=== PATIENT | female | born 2000 | race Caucasian/White ===

== ENCOUNTER 2021-01-04 09:02 | Emergency (ER) | payer OTHER, SELFPAY ==
[2021-01-04 09:20] VITALS: BP 115/97; PULSE 90; RESP 16; TEMP 36.7; O2SAT 97
--- NOTE | 2021-01-04 09:27 | PC.NURSE ---
no culture sent per provider
--- NOTE | 2021-01-04 09:38 | ED.URI ---
HPI - URI/Sore Throat General Chief Complaint: Upper Respiratory Infection Stated Complaint: asthma issues Time Seen by Provider: 01/04/21 09:30 Source: patient Mode of arrival: ambulatory Limitations: no limitations History of Present Illness HPI Narrative: Sonia Smith is a 20 yo female with a PMH of asthma who is here with asthma exacerbation. She is 10 weeks . Patient has a history of having chronic asthma and difficulty with shortness of breath because of her asthma but has out of both inhalers and has no primary care physician. She states she gets shortness of breath with walking very far and she is chronically wheezing. Discussed management of her asthma in the past and she is relied on rescue inhalers; she has no allergies Related Data Home Medications Medication Instructions Recorded Confirmed albuterol sulfate [Ventolin HFA] 2 puff INHALATION QID PRN 01/04/21 01/04/21 [id number] fum-folic [id number] 1 pkg PO DAILY 01/04/21 01/04/21 [Daily ] Allergies Allergy/AdvReac Type Severity Reaction Status Date / Time No Known Allergies Allergy Verified 01/04/21 09:27 Review of Systems Review of Systems: Narrative: CONSTITUTIONAL: Denies fever, chills, sweats. EYES: Denies visual changes, redness, discharge. ENT: Denies rhinorrhea, congestion, sore throat, otalgia. CARDIOVASCULAR: Denies chest pain, palpitations, edema. RESPIRATORY: Denies dyspnea, inspiratory and expiratory wheezing, mild cough GASTROINTESTINAL: Denies abdominal pain, nausea, vomiting, diarrhea. GENITOURINARY: Denies dysuria, hematuria, abnormal discharge SKIN: Denies rash or itching. NEUROLOGIC: Denies numbness, or focal weakness. PSYCHIATRIC: Denies anxiety or depression. [facility] Past Medical History Medical History Asthma Comments At time of signature, I agree with nursing past medical, surgical, social and family history. There is no relevant family history pertinent to the presenting complaint. Blood pressure is elevated due to asthma exacerbation, elevated due to neb treatment- given follow up pcp Exam Narrative: Exam Narrative: GENERAL: This is a well-nourished, well-developed patient, in moderate distress. HEAD: normocephalic, atraumatic. EYES: Sclera clear/white. Vision is grossly intact. EARS: External ears normal, auditory canals clear and without drainage, TMs normal without perforation. Hearing grossly intact. NOSE: External nose normal without nasal discharge, nares without redness, no rhinorrhea. THROAT: Mucous membranes moist, posterior pharynx mild erythema NECK: Neck supple, non-tender CARDIOVASCULAR: Regular rate and rhythm without murmurs, gallops, or rubs. RESPIRATORY: Diminished to auscultation. Breath sounds equal bilaterally. Bilateral inspiratory and expiratory wheezes, no rales, or rhonchi. GASTROINTESTINAL: Abdomen soft, SKIN: warm, intact with no suspicious lesions or rash, good texture and turgor. NEURO: awake, alert, and oriented to person, place and time. There were no obvious focal neurologic abnormalities. Steady gait EXTREMITIES: Normal range of motion. BACK: Nontender without deformity Course Course Emergency Course: Patient comes to [facility] with chronic asthma with a current asthma exacerbation She is 10 weeks She is given prednisone 60 mg here on site and a albuterol/Atrovent nebulizer treatment Will be discharged with prednisone x4 days; albuterol inhaler, and nebulizer solution and referral for nebulizer machine Vital Signs Vital signs: Vital Signs Temperature 98.1 F 01/04/21 09:20 Pulse Rate 90 01/04/21 09:20 Respiratory Rate 16 01/04/21 09:20 Blood Pressure 115/97 H 01/04/21 09:20 Pulse Oximetry 97 01/04/21 09:20 Temperature 98.1 F 01/04/21 09:20 Pulse Rate 90 01/04/21 09:20 Respiratory Rate 14 01/04/21 10:25 Blood Pressure 141/60 H 01/04/21 10:25 Pulse Oximetry 98 03/0
[2021-01-04] MEDS: predniSONE 20 MG TABLET 60 MG PO (09:54)
[2021-01-04] MEDS: IPRATROPIUM BR 0.02% INH SOLN 0.5 MG/2.5 ML VIAL 1 MG INHALATION (09:55)
[2021-01-04] MEDS: ALBUTEROL SULFATE NEB 2.5 MG/3 ML INH INHALATION (09:55)
[2021-01-04 10:25] VITALS: BP 141/60; RESP 14; O2SAT 98
== END 2021-01-04 10:35 | disposition home or self-care (01) ==
PROVIDERS: Emergency Provider Nurse Practitioner
DX: O99.512 Diseases of the respiratory system complicating pregnancy, second trimester (principal); Z3A.22 22 weeks gestation of pregnancy; J45.901 Unspecified asthma with (acute) exacerbation
CPT/HCPCS: 94640; 99213; G0463; J7512

== ENCOUNTER 2025-03-22 11:03 | Emergency (ER) | payer OTHER, SELFPAY ==
--- OUTSIDE RECORDS SUMMARY | 2025-03-22 11:08 | XMS_ITS | Referral Summary ---
Author Organization [facility] [address] Address [address] [place] [address] Phone Care Team Providers Care Cinder Pitman Name Role Phone No, Physician Primary Care Provider [phone] Sunny Vicente MD Unavailable [phone] Allergies No known active allergies Medications norgestimate-ethin yl estradioL (ORTHO-CYCLEN) 0.25-35 mg-mcg per tabletIndications: Encounter for general counseling and advice on contraceptive management Take 1 tablet by mouth daily 28 tablet 4 3 Active Active Problems Problem Noted Date Diagnosed Date Urinary tract infection in female 06/19/2022 Uterine adnexal pain 06/19/2022 Intramural uterine fibroid 06/19/2022 Obesity (BMI 30-39.9) 12/05/2020 Mild intermittent asthma without complication Assessment & Plan (04/15/2020 8:50 AM CDT): Home albuterol MDI replaced with formulary nebs while inpatient. Resolved Problems Problem Noted Date Diagnosed Date Resolved Date Maternal varicella, non-immune 01/02/2021 09/04/2021 Previous delivery a ffecting 12/05/2020 09/04/2021 Overview (07/15/2021): Desires repeat - scheduled 07/25 at 0730. Short interval between pregn ancies affecting , antepartum 12/05/2020 09/04/2021 Overview (12/05/2020): Delivered by c/s 03/2020. HEMALATHA 07/2021. Non-intractable vomiting with nausea 04/15/2020 12/05/2020 Assessment & Plan (04/15/2020 8:50 AM CDT): Most likely related to gall bladder pathology based on biliary dilation seen on CT and mild elevation of AST, ALT, alk phos, and bilirubin. With no obstructing stones present it could be due to biliary hypokinesis vs a recently passed stone. RUQ US ordered. GI consulted, may need general surgery evaluation for cholecystectomy. Breast feeding status of mother 04/15/2020 12/05/2020 Assessment & Plan (04/15/2020 8:51 AM CDT): Continue home vitamins. Ankle pain 06/04/2016 12/05/2020 Immunizations Immunization Administration Dates Next Due Tdap 03/25/2020 Social History Tobacco Use Types Packs/Day Years Used Date Smoking Tobacco: Every Day Cigarettes 1 7.5 Started: 2013; Last attempted to quit: 05/01/2021 E-cigarettes Smokeless Tobacco: Never Tobacco Cessation:Ready to Q uit: Not Asked; Counseling Given: Not Answered Alcohol Use Standard Drinks/Week Comments No 0 (1 standard drink = 0.6 oz pur e alcohol) AUDIT-C Answer Date Recorded Q1: How often do you have a drink containing alc ohol? Never 07/25/2021 Average Number of Drinks Not on file 021 Frequency of Binge Drinking Not on file 07/03 PHQ-2 Answer Date Recorded PHQ-2 Total Score (If total score is 3 or more points, staff should administer the PHQ-9) 0 04/15/2020 Personal Safety Answer Date Recorded Have you ever been in or are you currently in a harmful physical or emotional relationship or is someone making you feel afraid or unsafe? Denies 06/01/2023 Comments No Sex and Gender Information Value Date Recorded Sex Assigned at Not on file Legal Sex Female 7:02 AM STOCKING INSPECTOR Gender Identity Not on file Sexual Orientation Not on file Occupation Industry Job Start Date Job End Date [employer] Not on file Not on file Not on file Last Filed Vital Signs Vital Sign Reading Time Taken Comments Blood Pressure 102/80 09/06/2023 10:47 AM STOCKING INSPECTOR Pulse 75 06/02/2023 2:15 AM CDT Temperature 36.9 C (98.5 F) 06/01/2023 11:43 PM CDT Respiratory Rate 20 06/01/2023 11:43 PM CDT Oxygen Saturation 97% 06/02/2023 2:15 AM CDT Inhaled Oxygen Concentration - - Weight 68.5 kg (151 lb) 09/06/2023 10:47 AM STOCKING INSPECTOR Height 152.4 cm (5') 07/25/2021 6:09 AM CDT Body Mass Index 29.49 07/25/2021 6:09 AM CDT Plan of Treatment Not on file Procedures Procedure Name Priority Date/Time Associated Diagnosis Comments HEPATITIS C ANTIBODY Routine 12/05/2020 10:13 AM STOCKING INSPECTOR 8 weeks gestation of care, subsequent , first trimester PAP AND HIGH RISK HPV, REFLEX TO GENOTYPING Routine 12/05/2020 9:48 AM STOCKING INSPECTOR from Last 3 Months or Most Recently Relevant to Health Maintenance Results * Hepatitis C antibody (12/05/2020 10:13 AM STOCKING INSPECTOR) Hep C Ab Nonreactive Nonreactive RENNY MARTINEZ Comment: Interpretive Data Nonreactive: Antibodies to HCV not detected. Does NOT exclude the possibility of recent exposure to HCV. Equivocal: Equivocal for HCV antibodies. Supplemental molecular testing will be automatically performed to determine infection status in accordance with current CDC screening recommendations. Reactive: Positive for HCV antibodies. This may represent current or past HCV infection. Supplemental molecular testing will be automatically performed to determine current infection status in accordance with current CDC screening recommendations. Interpretive data was last revised on 2020. Blood specimen (specimen) 12/05/2020 10:13 AM STOCKING INSPECTOR 12/05/2020 5:20 PM STOCKING INSPECTOR Prema De La Torre MD LAB MICROBIOLOGY - NERAL ORDERABLES Final Result RENNY MARTINEZ [address] [employer] [place] [employer] [place] [address] * (ABNORMAL) Pap and High Risk HPV, reflex to Genotyping (12/05/2020 9:48 AM STOCKING INSPECTOR) Pap test 12/05/2020 9:48 AM STOCKING INSPECTOR 12/05/2020 9:48 AM STOCKING INSPECTOR Narrative 12/10/2020 10:57 AM STOCKING INSPECTOR [facility] Department of Pathology [address] [place], [place] [id number] Final Report with Addendum Patient Name: SONIA SMITH Address: [address] [place] [address] Gender: F : 2000 (Age: 20) Service: Laboratory Location: Lab Hospital #: [id number] Patient Type: Ref Lab Taken: 12/05/2020 Received: 12/05/2020 Accessioned:: 12/06/2020 Reported: 12/10/2020 Physician(s): MD Prema Martinez MD Diagnosis: Source of Specimen: SCREENING THIN PREP IMAGED PAP w/ Reflex HPV Specimen Adequacy: - Specimen satisfactory for interpretation; endocervical/transformation zone component absent or insufficient General Category: - Epithelial cell abnormality Interpretation/Results: - Atypical squamous cells of undetermined significance; - High risk HPV test pending -- addendum to follow OLLIE Mclean([facility]) Pedro Mohan M.D. Report Electronically Reviewed and Signed Out By Pedro Mohan M.D. 12/10/2020 10:57:22 Addenda: HPV Test Interpretation NEGATIVE for types 16, 18, 31, 33, 35, 39, 45, 51, 52, 56, 58, 59, 66 and 68. Test performed utilizing Gen-Probe Aptima assay. OLLIE Holt([facility]) Report Electronically Reviewed and Signed Out By KEILY HoltASC) 12/11/2020 10:38:01 Specimen(s) Received: A: SCREENING THIN PREP IMAGED PAP w/ Reflex HPV Clinical History: Last Menstrual Period: 10/09/2020 Menstrual History: The Pap test is a screening test used to aid in the detection of cervical cancer and its precursors. It should not be the sole means by which malignant and premalignant lesions are diagnosed. Both false negative and false positive results may occur. It also has poor sensitivity for the detection of endometrial lesions and should not be used to evaluate suspected endometrial abnormalities. For these reasons it is most important to obtain Pap tests at regular intervals. The performance characteristics of some immunohistochemical stains, fluorescence in-situ hybridization tests and immunophenotyping by flow cytometry cited in this report (if any) were determined by the Surgical Pathology Department at [facility] as part of an ongoing supplier quality specialist program and in compliance with federally mandated regulations drawn from the Clinical Laboratory Improvement Act of 1988 (CLIA '88). Some of these tests rely on the use of analyte specific reagents and are subject to specific labeling requirements by the US Food and Drug Administration. Such diagnostic tests may only be performed in a facility that is certified by the Department of Health and Human Services as a high complexity laboratory under CLIA '88. The FDA has determined that such clearance or approval is not necessary. This test is used for clinical purposes. It should not be regarded as investigational or for research. Nevertheless, federal rules concerning the medical use of analyte specific reagents require that the following disclaimer be attached to the report: This test was developed and its performance characteristics determined by the Surgical Pathology Department [facility]. It has not been cleared or approved by the U. S. Food and Drug Administration. Prema De La Torre MD LAB CYTOLOGY ORDERABL ES Final Result from Last 3 Months or Most Recently Relevant to Health Maintenance Insurance [employer] OPEN ACCESS [employer]PA IDPA [employer] IDPA BLUE ACCESS OOS Advance Directives For more information, please contact: [phone] * Full Code (Latest Code Status on File) Date Activated Date Inactivated Comments 07/25/2021 8:41 AM 07/27/2021 6:31 PM * Full Code Date Activated Date Inactivated Comments 07/25/2021 6:07 AM 07/25/2021 8:41 AM Full CPR in case of cardiopulmonary arrest * Full Code Date Activated Date Inactivated Comments 04/15/2020 5:10 AM 04/15/2020 11:06 PM * Full Code Date Activated Date Inactivated Comments 03/23/2020 10:17 PM 03/25/2020 9:57 PM * Full Code Date Activated Date Inactivated Comments 03/22/2020 5:39 PM 03/23/2020 10:17 PM Full CPR in case of cardiopulmonary arrest Care Teams Cinder Pitman Relationship Specialty Start Date End Date No, Physician PCP - General 04/14/20 Sunny Vicente MD Consulting Physician Gastroenterology 04/15/20
--- OUTSIDE RECORDS SUMMARY | 2025-03-22 11:08 | XMS_ITS | Clinical Summary ---
Author Organization [employer] [facility] Address [address] [place] [address] Care Team Providers Care Administrative Library Assistant Name Role Phone Unavailable Primary Care Provider Unavailabl e Immunizations Immunization Administration Dates Next Due Influenza Seasonal Unspecified Formulation IM Social History Tobacco Use Types Packs/Day Years Used Date Smoking Tobacco: Never Assessed Comments Unknown Sex and Gender Information Value Date Recorded Sex Assigned at Not on file Legal Sex Female 2:34 PM CDT Gender Identity Not on file Sexual Orientation Not on file Plan of Treatment Health Maintenance Due Date Last Done Comments HPV VACCINES (1 - 3-dose series) 2013 DTAP/TDAP/TD VACCINES (1 - Tdap) 2017 HEPATITIS B VACCINES (1 of 3 - 19+ 3-dose series) 09/03 CERVICAL CANCER SCREENING 2019 HPV/Cotest (21-29) 2019 PAP SMEAR 2019 INFLUENZA VACCINE (#1) 2024 07/26/2020
--- OUTSIDE RECORDS SUMMARY | 2025-03-22 11:08 | XMS_ITS | Continuity of Care Document ---
[facility] Address [address] [place] [address] [place] [address] Phone Care Team Providers Care Quality Assurance Qa Lab Technician Name Role Phone [facility] Unavailable Unavail able Allergies, Adverse Reactions, Alerts Substance Reaction Status Criticality No Known Allergies Active No Inform ation Medications Medication Instructions Dosage Effective Dates (start - stop) Status Comments Nexplanon 68 mg subdermal implant take 1 tablet once each day - Active multivitamin capsule take 1 tablet once each day - Active Claritin 10 mg tablet take 1 tablet by o ral route every day 10 MG - Active Procedures Procedure Date Vision Svcs Frames Purchases SV Plastic Sphcyl Reddick +/-4d, .12-2d Ju Polycarb Lens Per Lens Anti-reflective Coating Refraction Eye Exam, New Patient Eye Exam, New Patient Refraction Advance Directives Directive Yes / No Effective Date File Name No Information Encounters Encounter Description Practice Location Reason(s) For Visit Diagnoses Date Provider Providers Copied on Encounter [facility], [address], [place], [place], [id number], [place] tel:[phone] SEC Thony Cody No Information [facility] . [address], [address], [place], [place], [address], [place]. tel:[phone] [facility], [address], [place], [place], [id number], [place] tel:[phone] [address] Slayton N Lindbergh No Information [facility] . [address], [address], [place], [place], [address], [place]. tel:[phone] Referring Provider: Nieves Carpenter, [address], [place], [address]. tel:[phone] sulting Provider: Brooks Chadwick, [address], [place], [address] . tel:[phone] [facility], [address], [place], [place], [id number], [place] tel:[phone] SEC Slayton N Lindbergh Complete Exam (chief complaint) Regular astigmatism of both eyes Mukul OD Nieves. [address], [address], [place], [address], [place]. tel:[phone] Referring Provider: Sergio Jacobo, [address], [place], [address] . tel:[phone] [facility], [address], [place], [place], [address], [place] tel:[phone] SEC Slayton N Lindbergh No Information 8 Mukul OD Nieves. [address] [facility] [address], [address], [place], [address], [place]. tel:[phone] [facility], [address], [place], [place], [address], [place] tel:[phone] [address] [place] Blurry vision (chief complaint) No Information [address]. [address], [place], [place], [address], [place]. tel:[phone] Referring Provider: Sergio Jacobo, [address] [facility] [address], [place], [address] . tel:[phone] Family History Family Member Type Diagnosis Age At Onset No Information Payers Payer name Insurance type Covered constitution party ID Authornegro rogers(s) [employer] [id number] Social History Type Description Quantity Date Captured Comments Alcohol Use Details Unknown Caffeine Use Details Unknown Tobacco Use Status Smoking Status No Information Sex Female Chief Complaint And Reason For Visit No Information Reason For Referral Reason For Referral No Information Plan Of Treatment Date Type Action Status Goal Tobacco cessation counseling completed Patient Education Astigmatism: Care Instr uctions completed History Of Present Illness Encounter Date Complaint History Of Prese nt Illness Complete Exam The 17 year old female presents for evaluation of Complete Exam in the right eye and left eye. Hx of Myopia OU. Pt states she is having trouble seeing street signs at night and her eye are getting tired when reading. Pt also gets a slight STOVER after reading. DVA and NVA gradual decrease OU x 1 yr. Pt using no gtts at this time. Blurry vision The 14 year 4 mo nth old female presents for complete exam. Patient states that v/a is stable OU. Patient denies any pain or discomfort at this time. Patient not taking any drops at this time. Functional Status Date Functional Assessmen t No Information Instructions Date Instruction Additional Infor mation Impression/Plan New glasses Rx given Related to Regular astigmatism of both eyes - Good ocular health . No treatment needed at this time. return in 1 year for complete exam or sooner with any problems. Related to See list of assessments above - Return in 1 year portillo Novoa M.D. for Complete Exam Related to See list of assessments above Assessments Type Assessment Date No Information Patient Care Teams Name Effective Dates (start - stop) Status Members No Information
--- OUTSIDE RECORDS SUMMARY | 2025-03-22 11:08 | XMS_ITS | Clinical Summary ---
Author Organization [facility] [address] Address [address] [place] [address] Phone Care Team Providers Care Sample Washer Name Role Phone No, Physician Primary Care Provider [phone] Sunny Vicente MD Unavailable [phone] Allergies No known active allergies Medications norgestimate-ethin [...] Immunization Administration Dates Next Due Tdap 03/25/2020 Surgical History Surgery Date Site/Laterality Comments SECTION 03/01/2020 - 03/31/2020 REPEAT SECTION 11/01/2020 - 10/31/2021 Medical History Medical History Date Comments Asthma Depression Started medicati on in 7th grade, irregular use. Brief use of fluoxetine 2019. Chlamydia 2015 Family History Medical History Relation Name Comments Heart attack Father Hypertension Maternal Grandfather Hypertension Mother Thyroid cancer Mother Relation Name Status Comments Father Maternal Grandfather Mother Social History Tobacco Use Types Packs/Day Years [...] on file Legal Sex Female 7:02 AM RURAL HEALTH CONSULTANT Gender Identity Not on file Sexual Orientation Not on file Occupation Industry Job Start Date Job End Date [employer] Not on file Not on file Not on file Obstetrics History Para Term AB IAB SAB Ectopic Multiple Livin g Live Births 2 2 2 0 2 2 Date Outcome GA Total Labor Labor/2nd/3rd Weight Sex Type Anes PTL Abeba A1 A5 Name Clin 2019 Term 40w 3d 9h 27m 8h 28m/0h 58m/0h 01m 2.775 kg (6 lb 1.9 oz) M CS-LT ranv Epidur al,Gen eral N Livin g 3 6 TRI SMITH Tim C., MD Complications:Abruptio Place nta, Intolerance Delivery Location:[facility] ([facility] L [facility] PROCEDURE) 2020 Term 39w 3d 0h 02m 0h 02m 3.172 kg (6 lb 15.9 oz) M CS-LT ranv Spinal N Livin g 9 9 TRI SMITH Rachel Elizab eth, MD Complications:None Delivery Location:[facility] ([facility] PROCED[facility]) Comments 1. 2019 - cervidil/pitocin I OL for post-dates. Arrest of descent with NRFHTS, port-wine stained fluid with pushing. 1' C/S for placental abruption. 2. 2020 - scheduled RLTCS. Last Filed Vital Signs Vital Sign Reading Time Taken Comments Blood Pressure 102/80 09/06/2023 10:47 AM RURAL HEALTH CONSULTANT Pulse 75 06/02/2023 2:15 AM CDT Temperature 36.9 C (98.5 F) 06/01/2023 11:43 PM CDT Respiratory Rate 20 06/01/2023 11:43 PM CDT Oxygen Saturation 97% 06/02/2023 2:15 AM CDT Inhaled Oxygen Concentration - - Weight 68.5 kg (151 lb) 09/06/2023 10:47 AM RURAL HEALTH CONSULTANT Height 152.4 cm (5') 07/25/2021 6:09 AM CDT Body Mass Index 29.49 07/25/2021 6:09 AM CDT Plan of Treatment Health Maintenance Due Date Last Done Comments Varicella Vaccines (2 of 2 - 2-dose childhood series) 2002 04/01/2000 Regular Well Visit/Exam 18-64 2016 Pneumococcal vaccine <65 (1 of 2 - PCV) 2017 Depression Screening 04/14/2021 04/14/2020 Cervical Cancer Screening 12/05/2021 12/05/2020 Influenza Vaccine (Season Ended) 2025 07/26/2020, 09/13/2019, 08/12/2012 DTaP/Tdap/Td Vaccine (8 - Td or Tdap) 03/25/2030 03/25/2020, 04/22/2010, 12/11/2002, Additional history exists Hepatitis B Screening Completed 07/24/1999 , 02/03/1999, 1998 HPV Vaccines Completed 02/13/2016, 11/01, 12/21/2012, Additional history exists Hepatitis C Screening Completed 12/05/2020 Procedures Procedure Name Priority Date/Time Associated Diagnosis Comments HEPATITIS C ANTIBODY Routine 12/05/2020 10:13 AM RURAL HEALTH CONSULTANT 8 weeks gestation of care, subsequent , first trimester PAP AND HIGH RISK HPV, REFLEX TO GENOTYPING Routine 12/05/2020 9:48 AM RURAL HEALTH CONSULTANT from Last 3 Months or Most Recently Relevant to Health Maintenance Results * Hepatitis C antibody (12/05/2020 10:13 AM RURAL HEALTH CONSULTANT) Hep C Ab Nonreactive Nonreactive RENNY MARTINEZ [...] 2020. Blood specimen (specimen) 12/05/2020 10:13 AM RURAL HEALTH CONSULTANT 12/05/2020 5:20 PM RURAL HEALTH CONSULTANT us Prema De La Torre MD LAB MICROBIOLOGY - [facility] ORDERABLES Final Result RENNY [address] [place] [address] * (ABNORMAL) Pap and High Risk HPV, reflex to Genotyping (12/05/2020 9:48 AM RURAL HEALTH CONSULTANT) Pap test 12/05/2020 9:48 AM RURAL HEALTH CONSULTANT 12/05/2020 9:48 AM RURAL HEALTH CONSULTANT Narrative 12/10/2020 10:57 AM RURAL HEALTH CONSULTANT [facility] Department of Pathology [address] [place] [address] Final Report with Addendum Patient Name: SONIA SMITH Address: [address] [place] [address] Gender: F : 2000 (Age: 20) Service: Laboratory Location: Lab Hospital #: [id number] Patient Type: [facility] Lab Taken: 12/05/2020 Received: 12/05/2020 Accessioned:: 12/06/2020 [...] test pending -- addendum to follow OLLIE Mclean(ASCP) Pedro Mohan M.D. Report Electronically Reviewed and Signed Out By Pedro Mohan M.D. 12/10/2020 10:57:22 Addenda: HPV Test Interpretation NEGATIVE for types 16, 18, 31, 33, 35, 39, 45, 51, 52, 56, 58, 59, 66 and 68. Test performed utilizing Gen-Probe Aptima assay. OLLIE Holt(ASCP) Report Electronically Reviewed and Signed Out By OLLIE Holt(ASCP) 12/11/2020 10:38:01 Specimen(s) Received: A: SCREENING THIN [...] determined by the Surgical Pathology Department at [facility] as part of an ongoing quality control assistant program and in compliance with federally mandated [...] characteristics determined by the Surgical Pathology Department [facility]. It has not been cleared or approved by the U. S. Food and Drug Administration. Prema De La Torre MD LAB CYTOLOGY ORDERABL ES Final Result from Last 3 Months or Most Recently Relevant to Health Maintenance Insurance [facility] OPEN ACCESS [facility] HMO/PPO Address: [facility] [id number] [place] [address] [employer] BLUE ACCESS OOS Advance Directives For more information, please contact: [phone] * Full Code (Latest Code Status on [...] in case of cardiopulmonary arrest Care Teams Sample Washer Relationship Specialty Start Date End Date No, Physician PCP - General 04/14/20 Sunny Vicente MD Consulting Physician Gastroenterology 04/15/20
--- OUTSIDE RECORDS SUMMARY | 2025-03-22 11:08 | XMS_ITS | Clinical Summary ---
Author Organization [facility] Address [address] [place] [address] Phone Care Team Providers Care Community Relations Advisor Name Role Phone Provider, None Primary Care Provider Unavailabl e Allergies No known active allergies Medications Vit-Fe Fumarate-FA ( VITAMIN PO) Take by mouth. Act minna albuterol 108 (90 Base) MCG/ACT Aerosol Solution take 2 Puffs by inhalation every 6 hours as needed for Wheezing or Cough. 1 Inhaler 0 Active azithromycin (ZITHROMAX Z-MORE) 250 MG Tablet 2 tab(s) daily for 1 day, then 1 tab(s) daily for days 2-5. 6 Tab 0 Active Immunizations Immunization Administration Dates Next Due DTAP VACCINE 12/11/2002, 0,04/07/1999,02/03,1998 HEP B/HIB Combined Vaccine 02/03/1999,1998 Hepatitis B Vaccine, Pediatric/adolescent 07/24/1999 Hib Vaccine,unspecified Formulation 04/01/2000 Human Papillomavirus (HPV) 9 -valent Vaccine 11/14/2015 Human Papillomavirus Vaccine (HPV), quadrivalent 02/13/2016,12/21/2012,04/22/2010 Inactivated Polio Vaccine 12/11/2002,11/1999,02/03/1999,12/02 Influenza Vaccine 08/12/2012 Influenza Vaccine, Quadrivalent, PF 09/13/2019 Meningococcal Vaccine 02/13/2016,04/22/2010 TDAP Vaccine 03/25/2020 Social History Tobacco Use Types Packs/Day Years Used Date Smoking Tobacco: Former Smokeless Tobacco: Never Alcohol Use Standard Drinks/Week Comments Not Currently 0 (1 standard drink = 0.6 oz pur e alcohol) Comments Unknown Sex and Gender Information Value Date Recorded Sex Assigned at Not on file Legal Sex Female 3:02 AM CDT Gender Identity Not on file Sexual Orientation Not on file Last Filed Vital Signs Vital Sign Reading Time Taken Comments Blood Pressure 109/59 11/04/2019 10:00 PM PUMP MECHANIC Pulse 106 11/04/2019 10:15 PM PUMP MECHANIC Temperature 36 C (96.8 F) 11/04/2019 9:15 PM PUMP MECHANIC Respiratory Rate 20 11/04/2019 9:41 PM PUMP MECHANIC Oxygen Saturation 97% 11/04/2019 10:15 PM PUMP MECHANIC Inhaled Oxygen Concentration - - Weight 70.8 kg (156 lb) 11/04/2019 9:15 PM PUMP MECHANIC Height 152.4 cm (5') 11/04/2019 9:15 PM PUMP MECHANIC Body Mass Index 30.47 11/04/2019 9:15 PM PUMP MECHANIC Plan of Treatment Health Maintenance Due Date Last Done Comments Hepatitis C Virus (HCV) Screening 2000 Influenza Immunization (#1) 2024 09/13/2019, 1 SARS-COV-2 Immunization ( - 2023- season) 2024 DTaP/Tdap/Td Immunization (8 - Td or Tdap) 03/25/2030 03/25/2020, 04/22/2010, 12/11/2002, Additional history exists Respiratory Syncytial Virus (RSV) Immunization (Adult) (1 - 1-dose 75+ series) 2073 Hepatitis B Immunization Completed 999, 02/03/1999, 1998 Human Papillomavirus (HPV) Immunization Completed 02/13/2016, 11/14/2015, 12/21/2012, Additional history exists Meningococcal Immunization (ACWY) Completed 02/13/2016, 04/22/2010 Pneumococcal Immunization Combined Aged Out No longer eligible based on patient's age to complete this topic Rotavirus Immunization Aged Out No lo nger eligible based on patient's age to complete this topic Care Teams Community Relations Advisor Relationship Specialty Start Date End Date Provider, None [place] PCP - General 10/12/19
--- OUTSIDE RECORDS SUMMARY | 2025-03-22 11:08 | XMS_ITS | Encounter Summary ---
Author Organization [facility] Address [address] [place] [address] Care Team Providers Care Airfield Engineer Officer Name Role Phone Unavailable Primary Care Provider Unavailabl e Encounter Details Date Type Department Care Team (Late st Contact Info) Description 07/26/2020 Lab Requisition [facility] Imaging Services [facility] [address] [place] [address] [place] [address] [facility] [address] [place] [address] Encounter for general adult medical examination without abnormal findings Social History Tobacco Use Types Packs/Day Years Used Date Smoking Tobacco: Never Assessed Comments Unknown Sex and Gender Information Value Date Recorded Sex Assigned at Not on file Legal Sex Female 2:34 PM CDT Gender Identity Not on file Sexual Orientation Not on file documented as of this encounter Plan of Treatment Not on file documented as of this encounter Procedures Procedure Name Priority Date/Time Associated Diagnosis Comments HEPATITIS B SURFACE AB, QUANT Routine 07/26/2020 1:15 PM CDT Encounter for general adult medical examination without abnormal findings RUBEOLA IGG Routine 07/26/2020 1:15 PM CDT Encounter for general adult medical examination without abnormal findings RUBELLA IGG Routine 07/26/2020 1:15 PM CDT Encounter for general adult medical examination without abnormal findings VARICELLA ZOSTER IGG Routine 07/26/2020 1:15 PM CDT Encounter for general adult medical examination without abnormal findings MUMPS IGG ANTIBODY Routine 07/26/2020 1: 15 PM CDT Encounter for general adult medical examination without abnormal findings documented in this encounter Results * (ABNORMAL) VARICELLA ZOSTER IGG (07/26/2020 1:15 PM CDT) VARICELLA ZOSTER IGG Nonimmune - Negative(A) Immune - Positive 07/29/2020 1:15 PM CDT [facility] VARICELLA IGG INDEX 0.22 07/29/2020 1:15 PM CDT [facility] Comment: Nonimmune - Negative <0.60 AI Equivocal 0.60 - 0.89 AI Immune - Positive >0.89 AI Blood Venipuncture / Unknown 07/26/2020 1:15 PM CDT 07/26/2020 2:[address] [facility] - 07/29/2020 1:15 PM CDT A negative result indicates no virus antibody was detected. Zev Henderson MD CHEMISTRY ORDERABLES Final R esult Performing Organization Address [facility] Co de Phone Number [facility] CLIA# [id number] [place] [address] * RUBEOLA IGG (07/26/2020 1:15 PM CDT) RUBEOLA IGG Immune - Positive Immune - Positive 07/29/2020 9:35 AM CDT [facility] RUBEOLA IGG INDEX 0.99 07/29/2020 9:35 AM CDT [facility] Comment: Nonimmune - Negative <0.50 AI Equivocal 0.50 - 0.69 AI Immune - Positive >0.69 AI Blood Venipuncture / Unknown 07/26/2020 1:15 PM CDT 07/26/2020 2:[address] [facility] - 07/29/2020 9:35 AM CDT A positive result suggests response to immunization or prior exposure to the virus. Zev Henderson MD CHEMISTRY ORDERABLES Final R esult Performing Organization Address [facility] Co de Phone Number [facility] CLIA# [id number] [place] [address] * MUMPS IGG ANTIBODY (07/26/2020 1:15 PM CDT) Pathologist [facility] MUMPS IGG AB IMMUNE Immune - Positive 07/29/2020 9:30 AM CDT [facility] MUMPS IGG INDEX 3.14 07/29/2020 9:30 AM CDT [facility] Comment: Nonimmune - Negative <0.35 AI Equivocal 0.35 - 0.49 AI Immune - Positive >0.49 AI Blood Venipuncture / Unknown 07/26/2020 1:15 PM CDT 07/26/2020 2:[address] [facility] - 07/29/2020 9:30 AM CDT A positive result suggests response to immunization or prior exposure to the virus. Zev Henderson MD CHEMISTRY ORDERABLES Final R esult Performing Organization Address [facility]/ZIP Co de Phone Number [facility] [id number] [place] [address] * RUBELLA IGG (07/26/2020 1:15 PM CDT) [facility] RUBELLA IGG IMMUNE Immune - Positive 07/27/2020 9:19 AM CDT [facility] Blood Venipuncture / Unknown 07/26/2020 1:15 PM CDT 07/26/2020 2:[address] [facility] - 07/27/2020 9:19 AM CDT A positive result suggests response to immunization or prior exposure to the virus. Zev Henderson MD CHEMISTRY ORDERABLES Final R esult [facility]# [id number] [place] [address] * HEPATITIS B SURFACE AB, QUANT (07/26/2020 1:15 PM CDT) [facility] HEPATITIS B SURF AB,QN >1,000.0 mlU/mL 07/26/2020 8:00 PM CDT [facility] HEPATITIS B SURFACE AB INTERP Reactive See Interp 07/26/2020 8:00 PM CDT [facility] Blood Venipuncture / Unknown 07/26/2020 1:15 PM CDT 07/26/2020 2:40 PM CDT Narrative [facility] - 07/26/2020 8:00 PM CDT Patient has immunity to Hepatitis B virus. This assay is used to determine immune status to Hepatitis B as greater than or equal to 10 mIU/mL as per CDC guidelines (MMWR:vol 55: RR-16, 2006). Zev Henderson MD CHEMISTRY ORDERABLES Final R esult [facility]# [id number] [address] [place] [address] documented in this encounter Visit Diagnoses Diagnosis Encounter for general adult medical examination without abnormal findings Routine general medical examination at a health care facility documented in this encounter
--- OUTSIDE RECORDS SUMMARY | 2025-03-22 11:08 | XMS_ITS | Continuity of Care Document ---
Author Organization [facility] [place] [address] [place] [address] [place] [address] Phone Care Team Providers Care Chaplain Name Role Phone [facility] Unavailable [...] Vision Svcs Frames Purchases SV Plastic Sphcyl [place] +/-4d, .12-2d Ju Polycarb Lens Per Lens Anti-reflective Coating Refraction Eye Exam, New Patient Eye Exam, New Patient Refraction Advance Directives Directive Yes / No Effective Date File Name No Information Encounters Encounter Description Practice Location Reason(s) For Visit Diagnoses Date Provider Providers Copied on Encounter [facility], [address], [place], [place], [id number], [place] tel:[phone] [address] Thony Cody No Information 8 [facility] [email or web address] . [address] [facility], [address], [place], [place], [address], [place]. tel:[phone] [facility], [address], [place], [place], [address], [place] tel:[phone] [place] No Information 8 [facility] . [address], [address], [place], [place], [address], [place]. tel:[phone] Referring Provider: Nieves Carpenter, [address] [facility] [address], [place], [address]. tel:[phone] sulting Provider: Brooks Chadwick, [address], [place], [address] . tel:[phone] [facility], [address], [place], [place], [address], [place] tel:[phone] [address] [place] Complete Exam (chief complaint) Regular astigmatism of both eyes Mukul OD Nieves. [address] [facility], [address], [place], [address], [place]. tel:[phone] Referring Provider: Sergio Jacobo, [address], [place], [address] . tel:[phone] [facility], [address], [place], [place], [address], [place] tel:[phone] [address] [place] No Information 8 Mukul OD Nieves. [address] [facility], [address], [place], [address], [place]. tel:[phone] [facility], [address], [place], [place], [address], [place] tel:[phone] [address] [place] Professional Blurry vision (chief complaint) No Information [address] [place]. [address] [facility] [address], [address], [place], [place], [address], [place]. tel:[phone] Referring Provider: Sergio Jacobo, [address] [facility], [place], [address] . tel:[phone] Family History Family Member Type Diagnosis Age At Onset No Information Payers Payer name Insurance type Covered green party ID Authornegro rogers(s) [employer] [id number] Social History Type Description Quantity Date Captured [...]
[2025-03-22 11:11] VITALS: BP 101/62; PULSE 81; RESP 16; TEMP 36.2; O2SAT 100
--- NOTE | 2025-03-22 11:42 | ED.URI ---
HPI - URI/Sore Throat General Chief Complaint: Upper Respiratory Infection Stated Complaint: sore throat Time Seen by Provider: 03/22/25 11:30 Source: patient, RN notes reviewed and old records reviewed Mode of arrival: ambulatory Limitations: no limitations History of Present Illness HPI Narrative: 24 year old female presents to [facility] care with complaints of sore throat for the pas 4 days with no fevers or any sinus congestion or drainage or cough. Patient reports that her son tested positive for strep throat 5 days ago. Patient reports that she does have history of previous strep throat in the past. Patient reports that she has been using some cough drops to soothe her throat. MD elicited complaint: sore throat Pertinent past history: other (previous history of strep throat) Onset (ago): day(s) (4) Consistency: constant Severity: moderate Able to tolerate fluids by mouth: Yes Exacerbating factors: swallowing Treatments prior to arrival: other (cough drops) Related Data Allergies Allergy/AdvReac Type Severity Reaction Status Date / Time No Known Allergies Allergy Verified 03/22/25 11:34 Review of Systems Review of Systems: CONSTITUTIONAL: Denies malaise, chills, sweats, or fever. EYES: Denies visual changes, redness, or discharge. ENT: Reports no rhinorrhea, congestion, sinus pain, otalgia and is positive for sore throat. CARDIOVASCULAR: Denies chest pain, palpitations, or edema. RESPIRATORY: Reports cough.? Denies dyspnea. GASTROINTESTINAL: Denies abdominal pain, nausea, vomiting, diarrhea SKIN: Denies rash or itching. MUSCULOSKELETAL: Denies myalgia. NEUROLOGIC: Denies headache. All systems reviewed & are unremarkable except as noted in HPI and below [facility] Past Medical History Medical History (Updated 03/23/25 @ 00:01 by Fawn Yao) Asthma Surgical History Surgical History (Updated 03/24/25 @ 09:11 by Pauline Haider NP) Previous section x2 Social History Social History (Updated 03/22/25 @ 11:50 by Pauline Haider NP) Smoking status: Current every day smoker Tobacco type: e-cigarettes/vaping Alcohol intake: current Alcohol use details: rare Substance use type: does not use Living arrangements: with family Gender identity (if verbalized by the patient): Female Comments At time of signature, agree with nursing past medical, surgical, social and family history. There is no relevant family history pertinent to the presenting complaint Exam Narrative: GENERAL: Well-appearing, well-nourished, and in no acute distress. HEAD: Normocephalic EYES: PERRLA, conjunctivae clear ENT: Nares clear, turbinates edematous and erythematous, clear discharge. Mucous membranes moist. TM pearly light with dull light reflex bilaterally; no tragal tenderness. Oropharynx erythematous without lesions. Tonsils red and enlarged and without exudate, no drooling, no hoarseness, no trismus, uvula midline.painful swallowing NECK: Supple. yes lymphadenopathy CHEST: Clear to auscultation, breath sounds equal. No wheezing, rhonchi, rales, or stridor. No respiratory distress, speaks in full sentences.no cough noted SAO2 100% on room air HEART: Regular rate and rhythm. No murmur heard. SKIN: Warm, dry, no rash. NEURO: Alert and oriented x3. PSYCH: Normal mood and affect Course Course Emergency Course: Patient is aware of diagnosis, understands and agrees to treatment plan.? Anticipatory guidance given.? Patient agrees to follow-up as directed and is aware of reasons to seek care at the emergency department. Portions of this record may have been created with voice recognition software Level of Care: Express Care Visit Vital Signs Vital signs: Vital Signs Temperature 36.2 C L 03/22/25 11:11 Pulse Rate 81 03/22/25 11:11 Respiratory Rate 16 03/22/25 11:11 Blood Pressure 101/62 03/22/25 11:11 Pulse Oximetry 100 03/22/25 11:11 Oxygen Delivery Room Air 03/22/25 11:11 Temperature 36.2 C L 03/22/25 11:11 Pulse Rate 81 03/22/25 11:11 Respiratory Rate 16 03/22/25 11:11 Blood Pressure 101/62 03/22/25 11:11 Pulse Oximetry 100 03/22/25 11:11 Oxygen Delivery Room Air 03/22/25 11:11 Reviewed MDM - URI/Sore Throat MDM Narrative Medical decision making narrative: Differential diagnosis considered: Coffey virus, strep pharyngitis, allergic rhinitis, upper respiratory tract infection, sinusitis, rhinosinusitis, nasopharyngitis. viral pharyngitis, otitis media, otitis externa, pneumonia, bronchitis, viral cough syndrome, viral syndrome, and influenza.? Exam findings show no acute concerns or changes; patient is non-toxic appearing and is in no distress.? Patient is appropriate for outpatient treatment and follow-up. Differential Diagnosis Differential diagnosis: Likely upper respiratory infection, viral infection, pharyngitis and other (strep pharyngitis) Lab Data Attestation: I reviewed the patient's lab results. Lab results narrative: strep screen positive Labs: Lab Results 03/22/25 Range/Units 11:16 POC Grp A Strep Screen Positive (Negative) reviewed Critical Care Time Critical Care Time Critical Care Time: No Discharge Plan Discharge Clinical Impression: Strep pharyngitis Patient Disposition: Home Condition: Stable Instructions: Antibiotic Form, Strep Throat (ED) Additional Instructions: You tested positive for Group A strep . Take the entire course of antibiotics. Throw away your current toothbrush and begin using a new toothbrush in 48 hours in order to prevent re-infection. Sanitize all reusable water bottles . Do not share items with others. Salt water gargles may alleviate some of the throat discomfort. You can take Tylenol or ibuprofen per the package instructions for pain/fever. If your symptoms persist, change or worsen significantly before you can contact your personal physician then please, without delay, go to the emergency department for further evaluation. Follow-up with PCP in 7-10 days or sooner if needed Patient Language: Angolan Prescriptions: New amoxicillin 500 mg capsule 500 mg PO TID Qty: 30 0RF Rx Instructions: Take all doses of oral medication Follow-up/Referrals: Shayan Botello MD [Primary Care Provider] - Time of Disposition: 11:53 Quality Daisy Coma Scale Eyes: Open Verbal: Oriented and Alert Motor: Follows Commands Daisy Coma Total Score: 15
[2025-03-22 12:04] LABS: EDSTREPNEGPOS1 Positive (Negative)
== END 2025-03-22 12:00 | disposition home or self-care (01) ==
PROVIDERS: Emergency Provider Registered Nurse; PCP Family Medicine
DX: J02.0 Streptococcal pharyngitis (principal); J45.909 Unspecified asthma, uncomplicated; F17.290 Nicotine dependence, other tobacco product, uncomplicated
CPT/HCPCS: 87880; 99213; G0463